=== PATIENT | male | born 1985 | race Caucasian/White ===

== ENCOUNTER 2021-10-24 13:55 | Outpatient (CLI) | payer OTHER, SELFPAY ==
--- NOTE | ~2021-10-24 | US_ITS ---
US breast LT complete INDICATION: Left breast lump TECHNIQUE: Dedicated complete left breast ultrasound ultrasound including all 4 quadrants and subareo lar location COMPARISON: No prior studies for comparison. FINDINGS: The left breast is composed of normal heterogeneous echotexture without focal solid or cyst ic mass. IMPRESSION: 1: Normal left breast ultrasound. BI-RADS CATEGORY 1 - NEGATIVE Reviewed, dictated and finalized at location A.
== END 2021-10-24 13:56 | disposition home or self-care (01) ==
PROVIDERS: PCP Family Medicine; Visit Provider Family Medicine
DX: N63.20 Unspecified lump in the left breast, unspecified quadrant (principal)
CPT/HCPCS: 76641